=== PATIENT | female | born 1990 | race Caucasian/White ===

== ENCOUNTER → 2016-12-20 11:00 | Observation (INO) ==
--- NOTE | 2016-12-20 10:16 | Discharge Summary ---
Date of Encounter: 12/20/16 Time of Encounter: 10:17 - Discharge Diagnosis (1) 33 weeks gestation of Priority: Primary Status: Acute Comments: Ms Dodson, a , at 33 weeks and 5 days gestation arrives with c/o contractions and lower abdominal pressure for the past day. She states she sees Dr Russo in [place]. She states she has not been to see him in 2 months. Encouraged her to follow up with him for routine care and explained the difference in care between triage and routine care. Patient states she has a history of IV drug use and suboxone addiction, but states she has not used in over 7 months. She does not have custody of her 4 children. Patient was seen by the public health social worker whom explained the policy based on previous drug use for cord stat and 5 day hold. Patient was angry and would no longer speak with public health social worker. This CNM also discussed policy with patient. No contractions per monitor NST reactive, category I tracing Urine UTI UDS amphetamine positive. Discharge home with labor precautions Follow up in office with Dr Bush for routine care and PRN (2) Urinary tract infection affecting Priority: Primary Status: Acute Comments: Discharge home with macrobid. Encouraged to finish all antibiotics. Follow up with primary CODING COMPLIANCE SPECIALIST (3) Cigarette nicotine dependence, uncomplicated Priority: Secondary Status: Acute Comments: smokes half ppd. Discussed nicotine dependency in newborns with patient Encouraged to quit smoking (4) NST (non-stress test) reactive Priority: Secondary Status: Acute Comments: Category I tracing, reactive - Discharge Medications Prescriptions: Nitrofurantoin Monohyd/M-Cryst [Macrobid 100 mg Capsule] 100 mg PO BID 7 Days # 14 capsule Home Medications: Nitrofurantoin Monohyd/M-Cryst [Macrobid 100 mg Capsule] 100 mg PO BID 7 Days # 14 capsule 12/20/16 [Rx] Allergies/Adverse Reactions: 3 Allergy/AdvReac Type Severity Reaction Status Date / Time No Known Allergies Allergy Verified 07/12/16 22:15 Date of admission: 12/20/16 08:40 Primary care physician: Silverio Cid MD Discharging clinician: Britta Alvares Anticipated date of discharge: 12/20/16 - Patient Status Disposition: Home, Self-Care Condition: Good Functional capacity at discharge: independent ambulation Overall status at discharge: patient is back to baseline - Discharge Instructions Follow Up With: Silverio Cid MD [Primary Care Provider] - Silverio Bush MD [Non-Partnered Physician] - - Diet and Activity Activity: increase activity as tolerated Diet: regular diet Hospital Course SENIOR CHEMICAL ENGINEER Time spent discussing smoking cessation with patient: 3 to 10 minutes Time Attestation: Total time spent providing and/or coordinating discharge services: Time Spent: Less than 30 minutes Exam - Constitutional General appearance IM: cooperative, A&O X 3 - Respiratory Respiratory exam: Present: CTAB - Cardiovascular Cardiovascular exam IM: Present: RRR, +S1, +S2 - GI/Abdominal GI/Abdominal exam IM: normal bowel sounds, soft - Rectal Rectal exam: deferred - Additional comments: FHTs 130's with moderate variability and 15 x 15 accels and no decels Cervical exam: 1/70/-2 soft and mid-position - Extremities Exam Extremities exam IM: Present: normal capillary refill, normal inspection, radial pulses palpable and symmetrical - Neurological Exam Neurological exam: alert, oriented X3, reflexes normal - VTE Reasons for not Prescribing Prophylaxis: Treatment not Indicated - Low risk for VTE
[2016-12-20 10:22] LABS: Amphetamine Screen,Urine Positive ng/mL (Cutoff=1000); Barbiturate Screen,Urine Negative ng/mL (Cutoff=200); Benzodiazepines Screen,Urine Negative ng/mL (Cutoff=200); Cannabinoid Screen,Urine Negative ng/mL (Cutoff = 50); Cocaine Screen,Urine Negative ng/mL (Cutoff= 300); Opiate Screen,Urine Negative ng/mL (Cutoff=300); Phencyclidine Screen,Urine Negative ng/mL (Cutoff=25)
[2016-12-20 10:23] LABS: Bilirubin,Urine Negative (Negative); Blood,Urine Negative (Negative); Clarity,Urine Cloudy (Clear); Color,Urine Yellow (Yellow); Glucose,Urine (UA) Normal (Normal); Ketones,Urine Negative (Negative); Leukocyte Esterase,Urine Small (Negative); Nitrite,Urine Positive (Negative); PH,Urine 6.5 pH Units (5.0-8.0); Protein,Urine Negative (Neg-Trace); Urobilinogen,Urine Normal (Normal)
[2016-12-20 10:26] LABS: Bacteria,Urine Many per hpf (None-Few); Hyaline Casts,Urine None Seen per lpf (None-Few); Squamous Epithelial Cell,Urine Many per lpf (None-Few)
[2016-12-20 10:41] LABS: Amorphous Sediment,Urine Few (Few); RBC,Urine 0-3 per hpf (0-3)
== END | disposition home or self-care (01) ==
LOC: 1NENULAB
PROVIDERS: ADMIT Obstetrics & Gynecology; ATTEND Obstetrics & Gynecology